=== PATIENT | female | born 1980 | race Caucasian/White ===

== ENCOUNTER 2017-06-18 04:40 | Emergency (ER) | payer BC ==
[2017-06-18 04:45] VITALS: BP 135/79; BMI 41.6
[2017-06-18] MEDS ORDERED: TORADOL 60 MG VIAL IM ONE (05:09)
[2017-06-18] MEDS ORDERED: TORADOL 60 MG VIAL ONE (05:14)
--- NOTE | 2017-06-18 05:15 | DR.URIAD ---
HPI - Time Seen Time seen: 05:10 - PCP Primary Care Physician: NFD - Complaint Chief Complaint Doctors Comments: Patient is complaining of aching all over with headache, body ache, cold, cough with temp 102 earlier tonight. States she woke up aching around 3 am feeling like someone had been beating on her. She took two Motrin 600mg but it did not help. 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 States she did not take the flu shot this year but she takes a lot of vitamins trying to stay healthy. She denies alcohol or tobacco usage. Patient states she want to take the Tamiflu even if her test is negative because she has been exposed and the last time her test was negative the first time and turned positive later. Chief Complaint:: "I THINK I GOT THE FLU. FEVER, HEADACHE, BODY ACHES, N/V" Self Treatment fo Chief Complaint: MOTRIN 600MG - Reviewed Nurses Notes Reviewed: Yes - Source History Provided: Patient - Mode of Arrival Mode of Arrival: Ambulatory - Timing Onset of Chief Complaint: 06/17/17 - Context Recent Treated Infections: None History of Respiratory: Suspected Exposure to Flu - Quality Quality of Cough: Nonproductive Rhinorrhea: Clear Shortness of Breath: Moderate - Associated Signs and Symptoms Other Signs and Symptoms: Cough, Fever, Myalgias, Nasal Symptoms, Vomitting PMH - PMH Past Medical History: No Past Surgical History: Yes Surgical History: , Cholecystectomy, Hysterectomy - Family History History of Family Medical Conditions: Yes Family Medical History: Cancer, Hypertension - Social History Does patient currently use any type of tobacco product: No Have you used tobacco products in the last 12 months: No Type of Tobacco Use: None Does any household member use tobacco: No Alcohol Use: None Do you use any recreational Drugs:: No Lives With: Spouse Lives Where: Home - infectious screening Have you traveled outside the country in the last 6 months?: No Isolation: Standard ROS - Review of Systems Constitutional: No Symptoms Reported, Fever, Weakness, Fatigue. negative: See HPI, Chills, Diaphoresis, Malaise, Irritable, Loss of Appetite, Other Eyes: No Symptoms Reported. negative: See HPI, Eye Pain, Blurred Vision, Tearing, Discharge, Photophobia, Diplopia, Other ENTM: No Symptoms Reported, Nose Discharge Respiratoy: Non-Productive Cough. negative: No Symptoms Reported, See HPI, Productive Cough, Moist Cough, Dry Cough, Hacking Cough, Barking Cough, Brassy Cough, Orthopnea, Short of Breath, Stridor, Wheezing, Hemoptysis, Other Cardiovascular: No Symptoms Reported Gastrointestinal/Abdominal: No Symptoms Reported, Nausea Genitourinary: No Symptoms Reported. negative: See HPI, Discharge, Dysuria, Frequency, Hematuria, Pain, Bleeding, Other Neurological: No Symptoms Reported Musculoskeletal: No Symptoms Reported Integumentary: No Symptoms Reported Hematologic/Lymphatic: No Symptoms Reported. negative: See HPI, Anemia, Blood Clots, Easy Bleeding, Easy Bruising, Swollen Glands, Lymphadenopathy, Other Endocrine: No Symptoms Reported Psychiatric: No Symptoms Reported. negative: See HPI, Anxiety, Depression, Hallucinations, Excessive crying, Suicidal, Other PE - Vital Signs Vitals: Temperature 98.3 F Pulse Rate 118 Respiratory Rate 16 Blood Pressure [Left Arm] 141/78 Blood Pressure [Right Arm] 125/85 Blood Pressure 135/79 O2 Sat by Pulse Oximetry 98 - General Limitations: No Limitations General Appearance: Alert, In Distress (mild), Obese - Head Head Exam: Normal Inspection, Atraumatic, Normocephalic - Eyes Eye exam: Normal Appearance, PERRL, EOMI. negative: Scleral Icterus, Conjunctival Injection, Nystagmus, Miosis, Mydrasis, Periorbital Swelling, Periorbital Tenderness, Other - ENT ENT Exam: Normal Exam, Normal Oropharynx, Normal External Ear Exam, Mucous Membranes Moist, TM's Normal Bilaterally External Ear Exam: Normal External Inspection TM/Canal Exam: Bilateral Normal Nose Exam: Normal Nose Exam Nasal Speculum Exam: Bilateral Normal Mouth Exam: Normal Inspection Throat Exam: Normal Inspection - Neck Neck Exam: Normal Inspection, Full ROM, Trachea Midline - Chest Chest Inspection: Normal Inspection, Symmetric Chest Wall Rise - Respiratory Respiratory Exam: Normal Lung Sounds Bilat Respiratory Exam: Bilateral Clear to Auscultation - Cardiovascular Cardiovascular Exam: Regular Rate, Normal Rhythm, Normal Heart Sounds - Abdominal Exam Abdominal Exam: Normal Inspection, Normal Bowel Sounds, Soft. negative: Distention, Tenderness, Guarding, Rebound, Rigidity, Dimnished Bowel Sounds, Hyperactive Bowel Sounds, Hypoactive Bowel Sounds, Organomegaly, Trauma, Incision, Ascites, Mass, Bruit, Pulsatile Mass, Hernia, Other Abdominal Tenderness: negative: RUQ, RLQ, LUQ, LLQ, Epigastrium, Suprapubic, Diffuse, Mild, Moderate, Severe, Other - Extremeties Extremities Exam: Normal Inspection, Full ROM, Normal Capillary Refill. negative: Tenderness, Edema, Joint Swelling, Calf Tenderness, Other - Back Back Exam: Normal Inspection, Full ROM - Neurologic Neurological Exam: Alert, Oriented X3, CN II-XII Intact, Reflexes Normal. negative: Normal Gait (gait not tested) - Psychiatric Psychiatric Exam: Normal Affect, Normal Mood - Skin Skin Exam: Warm, Dry, Intact, Normal Color ROR - Labs Reviewed Laboratory Results Reviewed?: Yes (all lab results reviewed and discussed with patient) Laboratory: Influenza Type A (PCR) Negative (NEGATIVE) 06/18/17 04:59 Influenza Type B (PCR) Negative (NEGATIVE) 06/18/17 04:59 S. pyogenes (TEM-PCR) Not detected (NOT DETECT) 06/18/17 05:02 - Diagnosis Discharge Problem: Exposure to influenza, Pharyngitis Sinusitis Qualifiers: Sinusitis location: maxillary - Discharge Plan Disposition: 06 HOME HEALTH SERVICE Condition: Stable Prescriptions: Cephalexin [KEFLEX CAP 500 MG *] 500 mg PO TID #30 cap Ibuprofen [MOTRIN TAB 800 MG *] 800 mg PO BID PRN #40 tab PRN Reason: Pain/Inflammation Oseltamivir Phosphate [Tamiflu] 75 mg PO BID #10 cap - Follow ups/Referrals Follow ups/Referrals: NFD,None [Primary Care Provider] - 3 days ERIBERTO BLANCHARD [STAFF PHYSICIAN] - 3 days - Instructions Instructions: Influenza, Adult, [id number], Sinusitis, Adult, [id number]
[2017-06-18] MEDS ORDERED: TAMIFLU PO STA (06:43)
[2017-06-18] MEDS ORDERED: KEFLEX CAP 500 MG PO ONE ×2 (06:43→06:52)
[2017-06-18] MEDS ORDERED: TAMIFLU PO ONE (06:52)
== END 2017-06-18 06:59 | disposition home or self-care (01) ==
LOC: ER 04:40
DX: J10.1 Influenza due to other identified influenza virus with other respiratory manifestations (principal); J02.9 Acute pharyngitis, unspecified; J32.0 Chronic maxillary sinusitis
CPT/HCPCS: 87502; 87651; 96365; 96372; 96374; 99282; G9035; J1885

== ENCOUNTER 2017-07-18 10:48 | Inpatient (IN) | payer BC ==
[2017-07-18] MEDS ORDERED: PHARMACY CONSULT - VANCOMYCIN XX SCH (12:19)
[2017-07-18] MEDS: ZOSYN VIAL 4.5 GM IV SCH ×3 (12:25→21:12)
[2017-07-18 13:06] LABS: BASOPHILS # (AUTO) 0.1 X10^3/uL (0.0-0.1); BASOPHILS % (AUTO) 0.8 % (0.2-1.0); EOSINOPHILS # (AUTO) 0.2 x10^3/uL (0.0-0.2); EOSINOPHILS % (AUTO) 2.3 % (0.9-2.9); HEMATOCRIT 42.1 % (36.0-47.0); HEMOGLOBIN 14.7 g/dL (12.0-16.0); LYMPHOCYTES # (AUTO) 3.2 X10^3/uL (1.3-2.9); LYMPHOCYTES % (AUTO) 33.1 % (21.0-51.0); MEAN CORPUSCULAR HGB CONC 34.9 g/dL (33.0-35.0); MONOCYTES # (AUTO) 0.5 x10^3/uL (0.3-0.8); MONOCYTES % (AUTO) 5.4 % (0.0-13.0); NEUTROPHILS # (AUTO) 5.6 x10^3/uL (2.2-4.8); NEUTROPHILS % (AUTO) 58.4 % (42.0-75.0); PLATELET COUNT 316 X10^3/uL (150.0-450.0); RED CELL DISTRIBUTION WIDTH 13.2 % (11.6-16.5); WHITE BLOOD COUNT 9.7 X10^3/uL (3.6-10.0)
[2017-07-18 13:22] LABS: ALANINE AMINOTRANSFERASE 30 Units/L (12-78); ALBUMIN 3.9 g/dL (3.4-5.0); ALKALINE PHOSPHATASE 135 Units/L (46-116); ASPARTATE AMINO TRANSFERASE 17 Units/L (15-37); BLOOD UREA NITROGEN 17 mg/dL (7-18); CALCIUM 9.6 mg/dL (8.5-10.1); CARBON DIOXIDE 26.8 mmol/L (21-32); CHLORIDE 103 mmol/L (98-107); CREATININE 0.78 mg/dL (0.55-1.02); SODIUM 140 mmol/L (136-145); TOTAL PROTEIN 8.7 g/dL (6.4-8.2); eGFR BLACK RACES > 60 (>60); eGFR NON BLACK RACES > 60 (>60)
--- NOTE | 2017-07-18 13:57 | RAD ---
Indication: Pain Exam: Left foot series Findings: No fracture or dislocation is seen. There is mild soft tissue swelling around the distal fo ot. The tarsal bones are intact. The joint spaces are normal. Impression: Mild soft tissue swelling around the distal foot with no acute bony abnormality seen. Reported By:
[2017-07-18 14:04] VITALS: BMI 40.7
[2017-07-18] MEDS ORDERED: NS 100 ML IV + SPIKE MINIBAG* 100 ML IV ONE (14:10)
[2017-07-18] MEDS: NS 1000 ML 1,000 ML IV SCH (15:08)
[2017-07-18] MEDS: VANCOMYCIN HCL 1 GM VIAL 1 GM in D5W 250 ML IV 250 ML IV SCH ×2 (15:08→21:04)
[2017-07-18] MEDS ORDERED: NS 100 ML IV 100 ML IV ONE (20:36)
[2017-07-19] MEDS: NS 1000 ML 1,000 ML IV SCH ×2 (02:08→15:22)
[2017-07-19] MEDS ORDERED: NS 100 ML IV 100 ML IV ONE ×3 (05:16→20:21)
[2017-07-19 05:23] LABS: BASOPHILS # (AUTO) 0.1 X10^3/uL (0.0-0.1); BASOPHILS % (AUTO) 0.9 % (0.2-1.0); EOSINOPHILS # (AUTO) 0.3 x10^3/uL (0.0-0.2); EOSINOPHILS % (AUTO) 2.4 % (0.9-2.9); HEMATOCRIT 38.9 % (36.0-47.0); HEMOGLOBIN 13.4 g/dL (12.0-16.0); LYMPHOCYTES % (AUTO) 33.8 % (21.0-51.0); MEAN CORPUSCULAR HEMOGLOBIN 29.5 pg (27.0-34.0); MEAN CORPUSCULAR HGB CONC 34.4 g/dL (33.0-35.0); MONOCYTES # (AUTO) 0.7 x10^3/uL (0.3-0.8); NEUTROPHILS # (AUTO) 6.7 x10^3/uL (2.2-4.8); NEUTROPHILS % (AUTO) 56.9 % (42.0-75.0); PLATELET COUNT 279 X10^3/uL (150.0-450.0); RED BLOOD COUNT 4.53 X10^6/uL (3.5-5.4); RED CELL DISTRIBUTION WIDTH 12.8 % (11.6-16.5); WHITE BLOOD COUNT 11.7 X10^3/uL (3.6-10.0)
[2017-07-19] MEDS: VANCOMYCIN HCL 1 GM VIAL 1 GM in D5W 250 ML IV 250 ML IV SCH ×3 (05:35→21:53)
[2017-07-19 05:51] LABS: ALANINE AMINOTRANSFERASE 27 Units/L (12-78); ALKALINE PHOSPHATASE 105 Units/L (46-116); ASPARTATE AMINO TRANSFERASE 15 Units/L (15-37); BLOOD UREA NITROGEN 17 mg/dL (7-18); CALCIUM 8.3 mg/dL (8.5-10.1); CARBON DIOXIDE 24.7 mmol/L (21-32); CHLORIDE 105 mmol/L (98-107); COR CA(FOR HYPOALB) 9.1 mg/dL (8.5-10.1); CREATININE 0.91 mg/dL (0.55-1.02); SODIUM 140 mmol/L (136-145); TOTAL PROTEIN 6.8 g/dL (6.4-8.2); eGFR BLACK RACES > 60 (>60); eGFR NON BLACK RACES > 60 (>60)
[2017-07-19] MEDS: ZOSYN VIAL 4.5 GM IV SCH ×3 (06:40→21:53)
[2017-07-19] MEDS ORDERED: PATIENT'S HOME MEDICATION (Cholecalciferol (Vitamin D3) [Vitamin D3] 5,000 UNIT) PO SCH (09:00)
[2017-07-19] MEDS ORDERED: ESTRACE PO SCH (09:00)
[2017-07-19] MEDS ORDERED: VITAMIN D3 PO SCH (09:00)
[2017-07-19] MEDS: PHENTERMINE HCL 37.5 MG PO SCH (09:11)
[2017-07-19] MEDS: ESTRACE PO SCH (09:11)
[2017-07-19] MEDS: PATIENT'S HOME MEDICATION PO SCH (09:14)
--- NOTE | 2017-07-19 10:20 | DR.UPDATE ---
H&P Update History and Physical Update: WAS SEEN IN THE OFFICE ON 07/18/2017. A H&P WAS COMPLETED PRIOR TO ADMISSION. PATIENT HAS BEEN SEEN AND EXAMINED WITH NO CHANGES NOTED TO H&P. Changes noted: NO Yes with the following:
[2017-07-19 14:33] LABS: CREATININE 0.97 mg/dL (0.55-1.02); VANCOMYCIN,TROUGH 8.7 ug/mL (15-20)
[2017-07-19] MEDS ORDERED: ZOFRAN TAB 4 MG SL PRN (19:44)
[2017-07-19] MEDS ORDERED: VISTARIL PO PRN (21:00)
[2017-07-20] MEDS ORDERED: NS 100 ML IV 100 ML IV ONE (05:26)
[2017-07-20] MEDS: ZOSYN VIAL 4.5 GM IV SCH (06:06)
[2017-07-20] MEDS: VANCOMYCIN HCL 1 GM VIAL 1 GM in D5W 250 ML IV 250 ML IV SCH (06:06)
[2017-07-20] MEDS: NS 1000 ML 1,000 ML IV SCH (06:06)
[2017-07-20 06:42] LABS: BASOPHILS # (AUTO) 0.1 X10^3/uL (0.0-0.1); BASOPHILS % (AUTO) 0.9 % (0.2-1.0); EOSINOPHILS # (AUTO) 0.3 x10^3/uL (0.0-0.2); EOSINOPHILS % (AUTO) 2.2 % (0.9-2.9); HEMATOCRIT 37.7 % (36.0-47.0); HEMOGLOBIN 13.3 g/dL (12.0-16.0); LYMPHOCYTES # (AUTO) 3.8 X10^3/uL (1.3-2.9); LYMPHOCYTES % (AUTO) 31.8 % (21.0-51.0); MEAN CORPUSCULAR HGB CONC 35.2 g/dL (33.0-35.0); MEAN CORPUSCULAR VOLUME 85.1 fL (80.0-100.0); MEAN PLATELET VOLUME 6.8 fL (7.4-11.0); MONOCYTES # (AUTO) 0.6 x10^3/uL (0.3-0.8); MONOCYTES % (AUTO) 5.3 % (0.0-13.0); NEUTROPHILS # (AUTO) 7.1 x10^3/uL (2.2-4.8); NEUTROPHILS % (AUTO) 59.8 % (42.0-75.0); PLATELET COUNT 273 X10^3/uL (150.0-450.0); RED BLOOD COUNT 4.43 X10^6/uL (3.5-5.4); RED CELL DISTRIBUTION WIDTH 12.5 % (11.6-16.5); WHITE BLOOD COUNT 11.9 X10^3/uL (3.6-10.0)
[2017-07-20 06:59] LABS: ALANINE AMINOTRANSFERASE 24 Units/L (12-78); ALKALINE PHOSPHATASE 114 Units/L (46-116); ASPARTATE AMINO TRANSFERASE 18 Units/L (15-37); BLOOD UREA NITROGEN 15 mg/dL (7-18); CALCIUM 8.4 mg/dL (8.5-10.1); CARBON DIOXIDE 22.9 mmol/L (21-32); CHLORIDE 103 mmol/L (98-107); COR CA(FOR HYPOALB) 9.2 mg/dL (8.5-10.1); COR NA(FOR HYPERGLY) 137 mmol/L (136-145); SODIUM 137 mmol/L (136-145); TOTAL PROTEIN 6.9 g/dL (6.4-8.2); eGFR BLACK RACES > 60 (>60); eGFR NON BLACK RACES > 60 (>60)
[2017-07-20 07:49] VITALS: BP 116/66
[2017-07-20] MEDS: ESTRACE PO SCH (08:20)
[2017-07-20] MEDS: PATIENT'S HOME MEDICATION PO SCH (08:21)
[2017-07-20] MEDS: PHENTERMINE HCL 37.5 MG PO SCH (08:21)
== END 2017-07-20 10:30 | disposition home or self-care (01) | DRG 603 ==
LOC: MED/SURG 10:48 → UNDOADMIN 10:48 → MED/SURG 12:00
PROVIDERS: ADMIT Internal Medicine; ATTEND Internal Medicine
DX: L03.116 Cellulitis of left lower limb (principal); L03.032 Cellulitis of left toe
CPT/HCPCS: 36415; 73630; 80053; 80202; 82565; 85025; 87040; A4222; Q0177; S0181; J2543; J3370